=== PATIENT | female | born 1985 | race Caucasian/White ===

== ENCOUNTER 2025-05-03 08:27 | Outpatient (AMB) | payer BC, SELFPAY ==
--- OUTSIDE RECORDS SUMMARY | 2023-11-24 09:00 | XMS_ITS ---
Author Organization [facility] Address [address] [address] Care Team Providers Care Dishwashing Machine Operator Name Role Phone Mari Thompson Primary Care Provider Un available LUTHER BARRERA Unavailable [phone] Allergies No Known Allergies REASON FOR VISIT Rt foot bunion Medications Medication SIG (Take, Route, Frequency, Duration) Notes Start Date End Date Status Multi Vitamin/Minerals - as directed Orally Active PROzac 40 MG 1 capsule Orally Once a day Active [place] Carbonate 300 MG 1 capsule at be dtime Orally Once a day Active Encounters Encounter Location Date Provider Diagnosis [facility] [address] [address] 11/24/2023 LUTEHR BARRERA Plan Of Treatment No Information Progress Notes * Cara OLIVEIRAeDOB: 5 (40 yo F)Acc No.[id number]:11/24/2023 Consult note Patient: Kenisha RAMOS Provider: Keshawn Patel DPM :1985 A ge:38 Y S ex:Female Date:11/24/2023 Phone: Address:[address] [place] [id number] Pcp:Mari Thompson Subjective: * Chief Complaints: * 1 . Rt foot bunion. * Medical History: D iverticulosis, Cervical lymphadenopathy, Pelvic pain, Kidney stones, Bipolar, Allergic rhinitis, Peripheral scotoma of both eyes, Disturbance of smell, Frequent bowel movements. * Surgical History: r ight forearm/wrist surgery 09/2019, colonoscopy- diverticulosis 05/16/2020, robotic hysterectomy- Da Kali hysterectomy with right salpingectomy 07/31/2015, right knee arthroscopy/arthroplasty 1999, right knee arthroscopy/arthroplasty with screws 2001, two on same knee arthroscopy/arthroplasty 2004, laparoscopic left salpingectomy 09/15/2004, procedure extraocular muscle left eye 1989, procedure extraocular muscle left and right eye 1991. * Family History: D aughter(s): alive. F ather: alive. S on(s): alive. M other: alive, skin cancer, breast cancer, mental disorder OCD, suicide/depression. P aternal Grand Father: . P aternal Grand Mother: . M aternal Grand Father: . M aternal Grand Mother: , breast cancer, glaucoma, diabetes. * Social History: T obacco: never smoker Alcohol: yes, rarely. * Medications: T aking [place] Carbonate 300 MG Capsule 1 capsule at bedtime Orally Once a day , Taking Multi Vitamin/Minerals - Tablet as directed Orally , Taking PROzac 40 MG Capsule 1 capsule Orally Once a day * Allergies: N .K.D.A. Objective: * Vitals: Therapeutic Interventions: Assessment: Plan: * Treatment: * Billing Information: * Visit Code: * Procedure Codes: * Electronic signature of CHRISTIANO BARRERA D.P.M. on 05/03/2025 at 08:58 AM EDT Sign off status: Pending * Provider: Keshawn Patel DPM Date: 0 11/24/2023 Generated for Félix vega/Coleen/Ruchi on: 08:58 AM EDT
--- OUTSIDE RECORDS SUMMARY | 2025-05-02 08:00 | XMS_ITS | Encounter Summary ---
Author Organization [facility] Address [address] [place] [address] Care Team Providers Care Assistant Baseball Coach Name Role Phone Beronica Victor MANAGER BAR Primary Care Provider [phone] Reason for Visit * Reason Comments Thyroid Problem F/u thyroid nodules Encounter Details Date Type Department Care Team ([facility] st Contact Info) Description 05/02/2025 8:00 AM EDT Office Visit Endocrinology - [facility] [address] [place] [address] Michelle Tyson MD [address] [place] [address] Subclinical hyperthyroidism (Primary Dx); Pituitary microadenoma (CMS/HCC V24, CMS/HCC V28) Social History Tobacco Use Types Packs/Day Years Used Date Smoking Tobacco: Never Smokeless Tobacco: Never Alcohol Use Standard Drinks/Week Comments Not Currently 0 (1 standard drink = 0.6 oz pur e alcohol) Housing Instability Answer Date Recorde d Are you worried that in the next 2 months you may not have stable housing? No 09/13/2024 Food Access & Nutrition Answer Date Rec orded Do you have access to a vari ety of food including fruits and vegetables? Yes 09/13/2024 Access to Healthcare Answer Date Record ed Within the last 3 months, ho w many times did you visit the emergency department for your medical care? 0 09/13/2024 Health Literacy Answer Date Recorded How often do you need to hav e someone help you when you read instructions, pamphlets, or other written material from your doctor or pharmacy? Never 09/13/2024 Caregiver: How often do you need to have someone help you when you read instructions, pamphlets, or other written material from your doctor or pharmacy? Not on file 09/13/2024 Financial Risk Answer Date Recorded How hard is it for you to pa y for the very basics like food, housing, medical care, and air conditioning / heating? Not very hard 09/13/2024 Transportation Answer Date Recorded Has the lack of transportati on kept you from meetings, work, or from getting things needed for daily living? No Has the lack of transportati on kept you from medical appointments or from getting medications? No 09/13/2024 Social Isolation Answer Date Recorded How often do you feel lonely or isolated from th ose around you? Never 09/13/2024 Food Risk Answer Date Recorded Within the past 12 months we worried whether our food would run out before we got money to buy more. Never true 09/13/2024 Within the past 12 months th e food we bought just didn't last and we didn't have money to get more. Never true 09/13/2024 Dependent Care Answer Date Recorded Do you need help finding or paying for care for your loved ones. For example, child adolescent psychiatrist or elderly care for an older adult? No 09/13/2024 Education Answer Date Recorded Do you think completing more education or training, like finishing a GED, going to college, or learning a trade, would be helpful for you? No 09/13/2024 Employment and Income Answer Date Recor ded During the last four weeks, have you been actively looking for work? No 09/13/2024 Living Situation Answer Date Recorded What is your living situation? Unrecognized valu e 09/13/2024 Comments No Sex and Gender Information Value Date Recorded Sex Assigned at Female 07/25/2024 10:13 AM EST Legal Sex Female 8:09 PM EDT Gender Identity Female 07/25/2024 10:13 AM EST Sexual Orientation Straight 07/25/2024 10 :13 AM EST documented as of this encounter Last Filed Vital Signs Vital Sign Reading Time Taken Comments Blood Pressure 95/55 05/02/2025 7:50 AM EDT Pulse 71 05/02/2025 7:50 AM EDT Temperature - - Respiratory Rate 13 05/02/2025 7:50 AM EDT Oxygen Saturation - - Inhaled Oxygen Concentration - - Weight 71.7 kg (158 lb) 05/02/2025 7:50 AM EDT Height 160 cm (5' 3 ) 05/02/2025 7:50 AM EDT Body Mass Index 27.99 05/02/2025 7:50 AM EDT documented in this encounter Ordered Prescriptions Prescription Sig Dispense Quantity Refills Last Filled Start Date End Date methIMAzole (TAPAZOLE) 5 mg tabletIndications:Sub clinical hyperthyroidism Take 0.5 tablets (2.5 mg total) by mouth 1 (one) time each day. 45 tablet 1 05/02/2025 documented in this encounter Progress Notes * Michelle Tyson MD - 05/02/2025 8:00 AM EDT Please have blood work done. I will reach out with the results. * Michelle Tyson MD - 05/02/2025 8:00 AM EDT Subjective Patient ID: Kenisha Carson is a 40 y.o. female. Chief Complaint Patient presents with Thyroid Problem F/u thyroid nodules HPI 40-year-old female with past medical history of toxic multinodular goiter, pituitary microadenoma, bipolar disorder, MDD presents to the clinic today for follow-up of toxic multinodular goiter and pituitary microadenoma. Patient was last seen in the clinic in November [address] Vaughn. This is my first time evaluating her. Background: Patient reports that she was having symptoms related to her smell (smelling smoke all the time) dueto which a brain MRI was performed which showed pituitary microadenoma. This was in 2020. She was referred to endocrinology for management of the microadenoma. During one of her endocrinology office visits, she was found to have nodules on physical exam due to which thyroid ultrasound wasordered and showed subcentimeter nodules. Patient was also having symptoms of weight loss, anxiety, insomnia, hair loss, and palpitations. Thyroid labs showed TSH mildly low (0.35-0.39) with normal free T4 levels. TSI and TRAb antibodies negative. However, given patient's symptoms, she was started on low-dose methimazole 2.5 mg daily. During today's visit, patient denies galactorrhea. No change in ring size or shoe size. She does not have menstrual cycles as she had a hysterectomy. She does not have any visual symptoms. She has a history of migraines and reports that they have been more frequent compared to prior. She is seeing her neurologist tomorrow. Reports orthostasis, on propranolol. Last MRI brain was in September 2024 and showed stable pituitary microadenoma measuring 2 mm. Regarding her thyroid nodules, she is currently on methimazole 2.5 mg daily. She reports that she has been gaining back the weight that she previously lost. No compressive symptoms. She denies diarrhea, heat intolerance, anxiety, insomnia, palpitations. Biotin use: yes Amiodarone use: no Fielding use: yes, 450mg daily Started on methimazole 1 year ago 2.5mg daily Hx of head or neck radiation: no Smoking Hx: no FH of thyroid cancer: no TSH: 0.76 Thyroid US: FINDINGS: ACR TI-RADS criteria was utilized for nodule description and follow-up recommendations. RIGHT THYROID: Right thyroid lobe demonstrates homogeneous echotexture measuring 4.8 x 1.3 x 2.0 cm. No thyroid nodules greater than 0.5 cm identified. LEFT THYROID: Left thyroid lobe demonstrates homogeneous echotexture measuring 4.4 x 1.2 x 1.9 cm. No thyroid nodules greater than 0.5 cm identified. ISTHMUS: The isthmus measures 0.3 cm. No thyroid nodules greater than 0.5 cm identified. VASCULARITY: Color doppler demonstrates normal blood flow to thyroid gland. IMPRESSION: No thyroid nodules greater than 0.5 cm. The following portions of the patient's chart were reviewed in this encounter and updated as appropriate: Allergies Meds Review of Systems 12 point review of systems was performed and is negative except for as stated above. Objective Physical Exam GENERAL: Alert and oriented, in no acute distress. Well-nourished and well-hydrated. HEAD/NECK: Normocephalic and atraumatic. EYES: Pupils equal, round, and reactive to light (PERRLA). Extraocular movements intact. Conjunctivae clear. LUNGS: Lungs clear to auscultation bilaterally. No wheezes, rales, or rhonchi. CARDIOVASCULAR: Regular rate and rhythm. Normal S1 and S2 sounds. No murmurs or gallops. ABDOMEN: Soft, non-tender, and non-distended. Bowel sounds are active and normal. EXTREMITIES: No edema or deformities. Full range of motion in all joints. NEUROLOGICAL: Alert and oriented. Grossly nonfocal SKIN: Skin is warm, dry, and intact. Assessment/Plan Subclinical hyperthyroidism (Primary) Pituitary microadenoma (CMS/HCC V24, CMS/HCC V28) Regarding patient subclinical hyperthyroidism, will continue methimazole 2.5 mg daily. Her last labs in December 2024 showed normal TFTs. She has been taking biotin daily. I advised her to stop biotin for 48 hours and have repeat TFTs drawn. Will refill methimazole 2.5 mg daily. The last time she had a thyroid ultrasound was in December 2024, we will plan to repeat another ultrasound in December 2025. Regarding patient's pituitary microadenoma, she has no neurologic symptoms at this time. The size of the adenoma has remained stable at 2 mm. I will obtain a prolactin level and IGF-I level. Her last MRI brain was in September 2024 and it was stable compared to April 2024. Will plan to repeat another MRI in September 2025. Patient does report orthostasis but I am not concerned about cortisol deficiency at this time. Her blood pressure in the office today is on the lower side and she is taking propranolol 10 mg twice daily for anxiety. I advised her to reach out to her psychiatrist to see if the dose of this can be reduced and if that helps with her symptoms. Follow-up in 6 months Michelle Tyson MD Endocrinology, Diabetes, and Metabolism documented in this encounter Plan of Treatment Upcoming Encounters Date Type Department Care Team (Late st Contact Info) Description 10/09/2025 7:00 AM EDT Office Visit [facility] [address] [place] [phone] Liliane Pillai NP [address] [place] [address] 10/17/2025 8:30 AM EDT Appointment [facility] [address] [place] [id number] 10/31/2025 8:40 AM EDT Office Visit Endocrinology [facility] [address] [place] [address] Michelle Tyson MD [address], [place] Scheduled Orders Name Type Priority Associated Diagnoses Orde r Schedule Prolactin Lab Routine Pituitary microadenoma ([facility] V24, [facility] V28) 1 Occurrences starting 05/02/2025 until 05/02/2026 Insulin-like growth factor Lab Routine Pituitary microadenoma ([facility] V24, [facility] V28) 1 Occurrences starting 05/02/2025 until 05/02/2026 Thyroid stimulating hormone Lab Routine Subclinical hyperthyroidism 1 Occurrences starting 05/02/2025 until 05/02/2026 Thyroxine free Lab Routine Subclinical hyperthyroidism 1 Occurrences starting 05/02/2025 until 05/02/2026 Triiodothyronine free Lab Routine Subclinical hyperthyroidism 1 Occurrences starting 05/02/2025 until 05/02/2026 documented as of this encounter Visit Diagnoses Diagnosis Subclinical hyperthyroidism- Primary Thyrotoxicosis without mention of goiter or other cause, without mention of thyrotoxic crisis or storm Pituitary microadenoma ([facility] V24, [facility] V28) Benign neoplasm of pituitary gland and craniopharyngeal duct (pouch) documented in this encounter Discontinued Medications Medication Sig Discontinue Reason Start Date End Da te methIMAzole (TAPAZOLE) 5 mg tabletIndications:Subclini dede hyperthyroidism Take 0.5 tablets (2.5 mg total) by mouth 1 (one) time each day. Reorder 11/25/2024 05/02/2025 documented as of this encounter Additional Health Concerns Assessment Noted Time PHQ-9 Depression Total Score: 3 03/30/20 25 9:25 AM EDT documented as of this encounter Care Teams Assistant Baseball Coach Relationship Specialty Start Date End Date Beronica Victor NP [address] [facility] [address] [place] [address] PCP - General Family Medicine 07/25/24 documented as of this encounter
--- NOTE | 2025-05-03 08:30 | A.OFFVIS_ITS ---
Intake Visit Reasons: 6m Allergies No Known Allergies Allergy (Verified 05/03/25 08:30) Medication List - Last Reconciled 05/03/25 by Glendy Deal CNP buspirone mg PO estradiol 1 patch topical 2XW lithium carbonate mg PO lumateperone (Caplyta) 42 mg PO DAILY methimazole 2.5 mg PO DAILY progesterone micronized 100 mg PO BEDTIME propranolol 10 mg PO Q12H PRN topiramate 75 mg PO DAILY trazodone 0 - 100 mg PO DAILY HPI Comments Details: 40-year-old woman with bipolar disorder, a hormone negative pituitary lesion noted on MRI done in 2021, and multiple types of migraine (without aura, with aura, and migraine equivalent syndrome). Headaches were happening all the time. Pain was usually to the back of the head, dull or burning or throbbing-type pain with some occasional nausea. No auras. No specific triggers identified. Sleep was okay. She was taking topiramate 25mg in the morning and 50mg at bedtime. [facility] Medical History (Updated 05/03/25 @ 08:40 by Glendy Deal CNP) Depression Bipolar disorder Review of Systems Const Denies chills, Denies daytime sleepiness, Denies difficulty sleeping, Denies fatigue, Denies fever(s), Denies frequent falls, Reports headache(s), Denies increased appetite, Denies poor appetite, Denies snoring, Denies weakness, Denies weight gain and Denies weight loss Eyes Denies loss of vision ENT Denies vertigo, Denies dizziness and Reports headache(s) Card Denies chest pain at rest, Denies chest pain with activity, Denies syncope, Denies leg edema and Denies palpitations Resp Denies snoring GI Denies constipation, Denies heartburn, Denies diarrhea and Denies nausea Denies urinary frequency, Denies urinary incontinence and Denies urinary urgency Musc Denies abnormal gait, Denies numbness and Denies tingling Skin/Breast Denies dry skin and Denies rash Neuro Denies abnormal gait, Denies vertigo, Denies dizziness, Denies syncope, Denies frequent falls, Reports headache(s), Denies lack of coordination, Denies loss of vision, Denies memory loss, Denies numbness, Denies restless legs, Denies seizure-like activity, Denies tingling, Denies paresthesias, Denies tremor(s) and Denies weakness Psych Denies anxiety, Denies depression, Denies auditory hallucinations, Denies memory loss, Denies visual hallucinations and Denies suicidal ideation Endo Denies fatigue and Denies palpitations Physical Exam Const Other: General Appearance:? normal, in no acute distress. Skin:? no rashes, no significant birthmarks. Heart:? S1, S2 normal, no murmurs. Lungs:? clear anteriorly and posteriorly. Extremities:? no edema. Psych:? alert, oriented, cognitive function intact, cooperative with exam. Neuro Other: Mental Status:?Normal attention, orientation, memory and affect.? Cranial Nerves:?Pupils are equal, round and reactive to light. External occular muscles are intact. Visual rey are full. Face is symmetrical. Facial sensations are normal. Tongue is midline. Palate elevates symmetrically. Shoulder shrugging is normal. Hearing to bedside conversation is normal. Sensory Exam:?....? Coordination:?No ataxia,?no titubation.? Gait Exam: Within normal limits. Extrapyramidal System:?No tremor, rigidity with normal facial expressions.? Pronator Drift:?Not present.? Involuntary Movements:?No tremors seen.? Speech:?Normal.? Results Reviewed Results Reviewed: Labs at [facility] in Oct 2023: FSH 6.3, LH 5.2, estradiol 66.6, prolactin 13, Insulin like growth factor 1: 248, TSH 0.54, T4 1.05, Cortisol 7.5: All normal. MRI brain [facility] at [facility] in Apr 2024: Small Rathke's cyst MRI brain [facility] at [facility] in Oct 2023: 3.2mm x 4.6mm x 2.8mm pituitary lesion MRI brain at [facility] in Oct 2021: 2mm lesion in pitutary w/o enhancement Assessment & Plan Assessment & Plan (1) Migraine with aura: Code(s): G43.109 - Migraine with aura, not intractable, without status migrainosus Category: Medical Qualifiers: Status migrainosus presence: without status migrainosus Intractability: not intractable Qualified Code(s): G43.109 - Migraine with aura, not intractable, without status migrainosus Plan: Increase topiramate 25mg 2 tablets twice a day. (2) Migraine without aura: Code(s): G43.009 - Migraine without aura, not intractable, without status migrainosus Category: Medical Qualifiers: Status migrainosus presence: without status migrainosus Intractability: not intractable Qualified Code(s): G43.009 - Migraine without aura, not intractable, without status migrainosus (3) Migraine equivalent: Code(s): G43.109 - Migraine with aura, not intractable, without status migrainosus Category: Medical (4) Pituitary adenoma: Code(s): D35.2 - Benign neoplasm of pituitary gland Category: Medical Plan: MRI brain with and without contrast ordered f/u pituitary lesion Plan . Orders: Orders MR head/brain wo/w con Today D35.2 - Benign neoplasm of pituitary gland Medications: New topiramate 50 mg (2 x 25 mg) PO BID 360 tabs 1RF 90 days Coding Level of Care Code Est Pt Level 4 (73971) Diagnoses Migraine with aura and without status migrainosus, not intractable G43.109 Status migrainosus presence: without status migrainosus Intractability: not intractable Migraine without aura and without status migrainosus, not intractable G43.009 Status migrainosus presence: without status migrainosus Intractability: not intractable Migraine equivalent G43.109 Pituitary adenoma D35.2
--- OUTSIDE RECORDS SUMMARY | 2025-05-03 08:59 | XMS_ITS ---
Author Name [facility] Organization Unknown Results Test Name/Text Value Interpretation Date Range Source Bilirub SerPl-mCnc 1.2 mg/dL Above high normal 09/23/2024 0. 3 - 1 [facility] Bilirub Direct SerPl-mCnc 0.2 mg/dL Normal 09/23/2024 0 - 0.2 [facility] Bilirub Indirect SerPl-mCnc 1.0 mg/dL Normal 09/23/2024 [facility] Est. average glucose Bld gHb Est-mCnc 105.0 mg/dL Normal 09/09/2024 [facility] HbA1c MFr Bld 5.3 % Normal 09/09/2024 - 5.7 [facility] BUN SerPl-mCnc 11.0 mg/dL Normal 09/09/2024 7 - 17 [facility] Creat SerPl-mCnc 0.8 mg/dL Normal 09/09/2024 0.5 - 1 CT _[facility] eGFRcr SerPlBld CKD-EPI 2020 96.0 mL/min/1.73m2 Normal 09/09/2024 - [facility] Sodium SerPl-sCnc 141.0 mmol/L Normal 09/09/2024 135 - 14 5 [facility] Anion Gap SerPl-sCnc 8.0 Normal 09/09/2024 5 - 14 [facility] Prot SerPl-mCnc 6.7 g/dL Normal 09/09/2024 6.4 - 8.5 [facility]_ [facility] Potassium SerPl-sCnc 4.0 mmol/L Normal 09/09/2024 3.5 - 5 .1 [facility] Calcium SerPl-mCnc 9.6 mg/dL Normal 09/09/2024 8.4 - 10.2 [facility] Chloride SerPl-sCnc 108.0 mmol/L Above high normal 98 - 107 [facility] Albumin SerPl-mCnc 4.8 g/dL Normal 09/09/2024 3.5 - 5 [facility] AST SerPl-cCnc 17.0 unit/L Normal 09/09/2024 5 - 40 CT [facility] Glucose SerPl-mCnc 96.0 mg/dL Normal 09/09/2024 70 - 99 [facility] Bilirub SerPl-mCnc 1.7 mg/dL Above high normal 09/09/2024 0. 3 - 1 [facility] ALT SerPl-cCnc 16.0 unit/L Normal 09/09/2024 7 - 52 [facility] ALP SerPl-cCnc 51.0 unit/L Normal 09/09/2024 34 - 104 [facility] CO2 SerPl-sCnc 25.0 mmol/L Normal 09/09/2024 24 - 32 [facility] BUN/Creat SerPl 13.8 Normal 09/09/2024 12 - 20 [facility] LDLc SerPl Calc-mCnc 123.0 mg/dL Normal 09/09/2024 50 - 1 30 [facility] VLDLc SerPl Calc-mCnc 18.8 mg/dL Normal 09/09/2024 [facility] Cholest SerPl-mCnc 184.0 mg/dL Normal 09/09/2024 0 - 200 [facility] HDLc SerPl-mCnc 42.0 mg/dL Normal 09/09/2024 35 - 80 [facility] Trigl SerPl-mCnc 94.0 mg/dL Normal 09/09/2024 - 150 C [facility] WBC # Bld Auto 5.5 K/mcL Normal 09/09/2024 4 - 10.5 [facility] RDW RBC Auto-Rto 11.9 % Below low normal 09/09/2024 12.1 - 16.2 [facility] PMV Bld Auto 8.8 FL Normal 09/09/2024 7.4 - 11.4 [facility] MCH RBC Qn Auto 31.0 pcg Normal 09/09/2024 25 - 33 [facility] Monocytes/leuk NFr Bld Auto 6.7 % Normal 09/09/2024 2 - 12 [facility] RBC # Bld Auto 4.52 M/mcL Normal 09/09/2024 4.2 - 5.4 [facility]_ [facility] Platelet # Bld Auto 281.0 K/mcL Normal 09/09/2024 150 - 4 50 [facility] Eosinophil # Bld Auto 0.1 K/mcL Normal 09/09/2024 0 - 0.5 [facility] Lymphocytes # Bld Auto 1.8 K/mcL Normal 09/09/2024 1 - 3.2 [facility] Neutrophils # Bld Auto 3.2 K/mcL Normal 09/09/2024 1.8 - 7.8 [facility] Hgb Bld-mCnc 14.0 g/dL Normal 09/09/2024 12.5 - 16 [facility] Basophils/leuk NFr Bld Auto 0.7 % Normal 09/09/2024 0 - 2 [facility] Basophils # Bld Auto 0.0 K/mcL Normal 09/09/2024 0 - 0.2 [facility] Lymphocytes/leuk NFr Bld Auto 32.9 % Normal 09/09/2024 20 - 48 [facility] Monocytes # Bld Auto 0.4 K/mcL Normal 09/09/2024 0 - 0.8 [facility] Neutrophils/leuk NFr Bld Auto 58.6 % Normal 09/09/2024 44 - 74 [facility] MCHC RBC Auto-mCnc 34.5 g/dL Normal 09/09/2024 32 - 36 [facility] Eosinophil/leuk NFr Bld Auto 1.1 % Normal 09/09/2024 0 - 6 [facility] Hct VFr Bld Auto 40.6 % Normal 09/09/2024 37 - 47 CT [facility] MCV RBC Auto 89.7 FL Normal 09/09/2024 78 - 100 [facility] History of Medication Use Medication Directions Dispensed Refills Start Date End Date Status estradioL (VIVELLE-DOT) 0.05 mg/[address] 1 patch on the skin 2 (two) times a week. 04/06/20 25 active estradioL (VIVELLE-DOT) 0.05 mg/[address] 1 patch on the skin 2 (two) times a week. 04/06/20 25 active methIMAzole (TAPAZOLE) 5 mg tablet Take 0.5 tablets (2.5 mg total) by mouth 1 (one) time each day. 11/26/19 25 active methIMAzole (TAPAZOLE) 5 mg tablet Take 0.5 tablets (2.5 mg total) by mouth 1 (one) time each day. 11/26/19 25 active Vraylar 1.5 mg capsule Take 1 capsule (1.5 mg total) by mouth 1 (one) time each day. 11/16/19 25 active Latuda 40 mg tablet Take 1 tablet (40 mg total) by mouth 1 (one) time each day with breakfast. 10/05/19 25 active estradioL (ESTRACE) 1 mg tablet Take 1 tablet (1 mg total) by mouth 1 (one) time each day. 09/20/19 25 active estradioL (ESTRACE) 1 mg tablet Take 1 tablet (1 mg total) by mouth 1 (one) time each day. 09/20/19 25 active penicillin V potassiumTake 1 Tablet (oral) 2 times per day for 10 [id number] times per [id number] mg 07/28/19 active cyclobenzaprineTake 1 tablet (Oral) 3 times per day for 7 days May Cause [id number] et3 times per [id number] 0mg 10/28/19 23 suspended prednisoneTake 1 Tablet (oral) 1 time per day for 5 [id number] time per [id number] 0mg 10/28/19 23 suspended Bactrim DSTake 1 Tablet (oral) 2 times per day for 10 [id number] times per aodezok22mhxjajuukpztl 800-160mg 09/17/19 23 suspended lamoTRIgine (LaMICtal) 25 MG tablet 05/28/20 active QUEtiapine (SEROquel XR) 50 MG Tablet SR 24 hr Take 50 mg by mouth daily. 05/06/20 active FLUoxetine (PROzac) 40 MG capsule Take 40 mg by mouth daily. 04/23/20 22 active adapalene 0.3 % topical gel APPLY TO FACE AT NIGHT DAILY 023 active Prozac 023 active sulfamethoxazole 800 mg-trimethoprim 160 mg tablet TAKE 1 TABLET BY MOUTH TWICE A DAY FOR 10 DAYS 023 completed amoxicillin 875 mg tablet TAKE 1 TABLET BY MOUTH EVERY 12 HOURS TAKE PROBIOTIC WHILE TAKING 023 completed cyclobenzaprine 10 mg tablet TAKE 1 TABLET BY MOUTH 3 TIMES PER DAY FOR 7 DAYS MAY CAUSE DROWSINESS 023 completed fluoxetine 40 mg capsule TAKE 1 CAPSULE BY MOUTH ONCE A DAY 023 completed fluoxetine 60 mg tablet TAKE 1 TABLET BY MOUTH EVERY DAY FOR ANXIETY 023 active lithium carbonate 300 mg capsule TAKE 1 CAPSULE IN THE MORNING AND 2 CAPSULES IN THE EVENING 023 completed nitrofurantoin monohydrate/macrocry stals 100 mg capsule TAKE 1 CAPSULE BY MOUTH TWICE DAILY FOR 5 DAYS 023 completed prednisone 50 mg tablet TAKE 1 TABLET BY MOUTH EVERY DAY FOR 5 DAYS 023 completed quetiapine ER 50 mg tablet,extended release 24 hr TAKE 1 TABLET(S) BY MOUTH NIGHTLY FOR MOOD 023 completed terconazole 0.4 % vaginal cream APPLY DIRECTED VAGINALLY EVERY DAY AT BEDTIME FOR 7 DAYS 023 completed SeroquelTakeNo date recordedNo form recordedNo frequency recordedNo route recordedNo set duration recordedNo set duration amount recordedactiveNo dosage strength recordedNo dosage strength units of measure recorded active ProzacTakeNo date recordedNo form recordedNo frequency recordedNo route recordedNo set duration recordedNo set duration amount recordedactiveNo dosage strength recordedNo dosage strength units of measure recorded active LamictalTakeNo date recordedNo form recordedNo frequency recordedNo route recordedNo set duration recordedNo set duration amount recordedactiveNo dosage strength recordedNo dosage strength units of measure recorded active ciprofloxacin 500 mg tablet TAKE 1 TABLET BY MOUTH TWICE A DAY active lamotrigine 25 mg tablet TAKE 1 TABLET(S) BY MOUTH ONCE A DAY FOR MOOD STABILIZATION active Seroquel XR 50 mg tablet,extended release active busPIRone (BUSPAR) 10 mg tablet Take 1 tablet (10 mg total) by mouth 1 (one) time each day. active busPIRone (BUSPAR) 10 mg tablet Take 1 tablet (10 mg total) by mouth 1 (one) time each day. active Caplyta 42 mg capsule active Caplyta 42 mg capsule active lithium 150 mg capsule active lithium 150 mg capsule active multivit with min-folic acid 200 mcg tablet,chewable Chew. activ e multivit with min-folic acid 200 mcg tablet,chewable Chew. activ e propranoloL (INDERAL) 10 mg tablet Take 1 tablet (10 mg total) by mouth. active propranoloL (INDERAL) 10 mg tablet Take 1 tablet (10 mg total) by mouth. active topiramate (TOPAMAX) 25 mg tablet Take 1 tablet (25 mg total) by mouth 1 (one) time each day. 1 tab po in am, 2 tabs po pm active topiramate (TOPAMAX) 25 mg tablet Take 1 tablet (25 mg total) by mouth 1 (one) time each day. 1 tab po in am, 2 tabs po pm active Allergies Allergen Reaction Severity Comment Documented Date Source Statu s LAMOTRIGINE Other reaction( s): hives,swelling 12/09/2021 [facility] active Problems Problem Status Onset Date Problem Type Date of Resolution Source Calcification of left breast active EncounterDiagnosisAct [facility] Cervical cancer screening active 2024-09-19 ProblemAct [facility] Cervical lymphadenopathy active 2018-02-25 ProblemAct [facility] Diverticulosis active 2024-06-16 Problem[address] [facility] Kidney stones active 2013-04-12 [address] [facility] Screening mammogram for breast cancer active 2024-09-19 ProblemAct [facility] Bipolar affective (CMS/HCC V24, CMS/HCC V28) active 2011-07-29 ProblemAct [facility] Cervical high risk HPV (human papillomavirus) test positive active 2024-09-19 ProblemAct [facility] Surgical menopause active 2024-09-19 ProblemAct [facility] Allergic rhinitis active 2011-07-09 ProblemAct [facility] Pelvic pain in female active 2014-07-17 ProblemAct [facility] Night sweats active 2024-09-19 [address] [facility] Encounter for gynecological examination with abnormal finding active 2024-09-19 ProblemAct [facility] Major depressive disorder, recurrent, unspecified (CMS/HCC V24) active 2019-07-22 [address] [facility] Streptococcal pharyngitis active 2023-07-28 ProblemAct [facility] Bipolar disorder, unspecified active ProblemAct [facility] Anxiety disorder, unspecified active ProblemAct [facility] Pain in right foot active 2022-12-30 ProblemAct [facility] Closed fracture of sesamoid bone of foot active 2023-01-15 ProblemAct [facility] Right anterior shoulder pain active EncounterDiagnosisAct [facility] Immunizations Vaccine Date Source Lot Number Status Influenza trivalent, MDCK, 0 .5mL, preservative free (Flucelvax) 6mo and older 03/14/2024 [facility] [id number] completed Influenza trivalent, MDCK, 0 .5mL, preservative free (Flucelvax) 6mo and older 03/14/2024 [facility] 9465 84 completed Moderna SARS-CoV-2 COVID-19, mRNA, LNP-S, preservative free 11/08/2020 [facility] completed Moderna SARS-CoV-2 COVID-19, mRNA, LNP-S, preservative free 11/08/2020 [facility] completed Influenza trivalent, 0.5mL, preservative free (Fluarix; FluLaval; Fluzone) ages 6mo and older (Afluria) 3 years and older 03/11/2018 [facility] completed Influenza trivalent, 0.5mL, preservative free (Fluarix; FluLaval; Fluzone) ages 6mo and older (Afluria) 3 years and older 03/11/2018 [facility] completed H1N1 Inj Preservative Free 03/04/2017 [facility] completed H1N1 Inj Preservative Free 03/04/2017 [facility] completed Tdap Tetanus diptheria acell ular pertussis (Boostrix; Adacel) 7yo and older 07/29/2011 [facility] [id number] completed Tdap Tetanus diptheria acell ular pertussis (Boostrix; Adacel) 7yo and older 07/29/2011 [facility] [id number] completed Tdap Tetanus diptheria acell ular pertussis (Boostrix; Adacel) 7yo and older 09/13/2010 [facility] [id number] completed Tdap Tetanus diptheria acell ular pertussis (Boostrix; Adacel) 7yo and older 09/13/2010 [facility] [id number] completed Encounters Encounter Type Encounter Reason Primary Diagnosis Location Date Ambulatory Mammographic calcification found on diagnostic imaging of breast Mammographic calcification found on diagnostic imaging of breast [facility] 04/18/2025 Ambulatory Follow-up Asymptomatic postprocedural ovarian failure [facility] 04/06/2025 Ambulatory Lab Results Lab Results [facility] 12/28/2024 Ambulatory Family history of malignant neoplasm of breast Family history of malignant neoplasm of breast [facility] 11/29/2024 Ambulatory Other abnormal and inconclusive findings on diagnostic imaging of breast Other abnormal and inconclusive findings on diagnostic imaging of breast [facility] 10/11/2024 Ambulatory Other abnormal and inconclusive findings on diagnostic imaging of breast Other abnormal and inconclusive findings on diagnostic imaging of breast [facility] 10/11/2024 Ambulatory Encounter for screening mammogram for malignant neoplasm of breast Encounter for screening mammogram for malignant neoplasm of breast [facility] 09/29/2024 Ambulatory Lab Results Unspecified jaundice [facility] 09/23/2024 Ambulatory Gynecologic Exam Encounter for gynecological examination (general) (routine) with abnormal findings [facility] 09/19/2024 Ambulatory Pain in left elbow Pain in left elbow [facility] 09/09/2024 Ambulatory New Patient Bipolar disorder , current episode manic without psychotic features, unspecified [facility]09[facility]20[facility] 02/19/2023 Ambulatory [facility] 02/18/2023 Ambulatory Pain in right shoulder [facility] 02/09/2023 Ambulatory [facility] 01/22/2023 Ambulatory [facility] 01/22/2023 Ambulatory [facility] 01/15/2023 Ambulatory [facility] 01/15/2023 Ambulatory [facility] 01/14/2023 Ambulatory [facility] 12/30/2022 Ambulatory [facility] 12/30/2022 Ambulatory [facility] 12/30/2022 Ambulatory [facility] 12/30/2022 Ambulatory [facility] 12/30/2022 Ambulatory Contact with and (suspected) exposure to covid-19 cVidya 06/03/2022 Care Team Organization Name Specialty Phone Email Start Date End Da te [facility] Primary Care 04/18/2025 [facility] Primary Care 04/06/2025 [facility] 02/22/2025 [facility] Primary Care 5 [facility] Primary Care 09/14/2024 [facility] Primary Care 5 [facility] Primary Care 09/09/2024 [facility] Primary Care 07/26/2023 [facility] 02/09/2023 01/18/2025 [facility] 02/09/2023 02/09/2023 cVidya 06/03/2022 c[facility]idya 04/06/2022 06/03/2022
--- OUTSIDE RECORDS SUMMARY | 2025-05-03 08:59 | XMS_ITS | Clinical Summary ---
Author Organization [facility] Address [address] [place] [address] Care Team Providers Care Strike Plate Attacher Name Role Phone Alexandria-Mari Victor MD Primary Care Provider Allergies No known active allergies Medications Medication Sig Dispensed Refills Start Date End Date Status lithium carbonate 300 MG capsule TAKE 1 CAPSULE BY MOUTH EVERY MORNING AND TAKE 2 CAPSULES EVERY EVENING 0 01/09/2020 Active FLUoxetine (PROzac) 40 MG capsule Take 40 mg by mouth daily. 0 01/05/2020 Active metroNIDAZOLE (FLAGYL) 250 MG tablet Take 1 tablet (250 mg total) by mouth 3 (three) times a day. 21 tablet 0 03/21/2020 Active Social History Tobacco Use Types Packs/Day Years Used Date Smoking Tobacco: Never Smokeless Tobacco: Never Alcohol Use Standard Drinks/Week Comments No 0 (1 standard drink = 0.6 oz pur e alcohol) Sex and Gender Information Value Date Recorded Sex Assigned at Female 03/21/2020 4:29 PM EDT Gender Identity Not on file Sexual Orientation Not on file Job Start Date Occupation Industry Not on file Not on file Not on file Last Filed Vital Signs Vital Sign Reading Time Taken Comments Blood Pressure 126/72 03/21/2020 5:22 PM EDT Pulse 84 03/21/2020 5:22 PM EDT Temperature 36.4 C (97.5 F) 03/21/2020 5:22 PM EDT Respiratory Rate 16 03/21/2020 5:22 PM EDT Oxygen Saturation 100% 03/21/2020 5:22 PM EDT Inhaled Oxygen Concentration - - Weight 86.2 kg (190 lb) 03/21/2020 3:42 PM EDT Height 160 cm (5' 3 ) 03/21/2020 3:42 PM EDT Body Mass Index 33.66 03/21/2020 3:42 PM EDT Plan of Treatment Health Maintenance Due Date Last Done Comments Hepatitis B Vaccines (1 of 3 - 3-dose series) 1985 Hepatitis C Screening 1985 Depression Screening 1997 BMI Counseling 2003 Preventative Health Evaluation 2003 Cervical Cancer Screening (Pap Smear) 2006 DTap / Tdap / Td (3 - Td or Tdap) 07/29/2021 07/29/2011, 09/13/2010 COVID-19 Vaccine (2024-2 6 season) 2025 10/11/2020 Influenza Vaccine (#1) 2025 8, 03/20/2015 Pneumococcal Vaccine Aged Out No long er eligible based on patient's age to complete this topic RSV Ped < 20 months Aged Out No longe r eligible based on patient's age to complete this topic Care Teams Strike Plate Attacher Relationship Specialty Start Date End Date Alexandria-Mari Victor MD PCP - General Internal Medicine 03/21/20
--- OUTSIDE RECORDS SUMMARY | 2025-05-03 08:59 | XMS_ITS | Patient Health Record ---
Author Organization [facility] Address [address] [facility] [address] [place] [address] Care Team Providers Care Content Assistant Name Role Phone Mancelona-Mari Victor Primary Care Provider Un available LUTHER BARRERA Unavailable [phone] Allergies No Known Allergies Reason For Referral No Information Medications Medication SIG (Take, Route, Frequency, Duration) Notes Start Date End Date Status PROzac 40 MG 1 capsule Orally Onc e a day Not-Taking Multi Vitamin/Minerals - as directed Orally Active [place] Carbonate 300 MG 1 capsule at be dtime Orally Once a day Not-Taking busPIRone HCl 15 MG 1 tablet Orally Twic e a day Active Topamax Active Plan Of Treatment Pending Test Test Name Order Date X ray : Foot, right 3v 12/07/2023 Insurance Providers Payer Name Payer Address Payer Phone Subscriber Number Group Number Insured Name Patient Relationship to Insured Coverage Start Date Coverage End Date [employer] [address] [place] [address] [id number] Kenisha Carson Self - patient is the insured Medical (General) History Medical History History ICD Code diverticulosis cervical lymphadenopathy pelvic pain kidney stones bipolar allergic rhinitis peripheral scotoma of both eyes disturbance of smell frequent bowel movements + COVID 2020 COVID vaccinated X 2 (Moderna) Pituitary microadenoma Multiple thyroid nodules Surgical History Surgery Date(Month/Year) right forearm/wrist surgery 09/2019 colonoscopy- diverticulosis 05/16/2020 robotic hysterectomy- [facility] hysterect rishabh with right salpingectomy 07/31/2015 right knee arthroscopy/arthroplasty 1999 right knee arthroscopy/arthroplasty with screws 2001 two on same knee arthroscopy/arthroplast y 2004 laparoscopic left salpingectomy 09/16/19 05 procedure extraocular muscle left eye 19 90 procedure extraocular muscle left and ri ght eye 1992 appendectomy 2013 2007 2009 2010 Hospitalization History Reason Date(Month/Year) hysterectomy appendectomy 2013 2010 2009 2007 1 knee surgery
--- OUTSIDE RECORDS SUMMARY | 2025-05-03 08:59 | XMS_ITS | Clinical Summary ---
Author Organization [facility] Address [address] [place] [address] Care Team Providers Care Oil Exploration Engineer Name Role Phone Unknown Primary Care Provider [phone] Allergies No known active allergies Medications FLUoxetine (PROzac) 40 MG capsule Take 40 mg by mouth daily. 04/23/2022 Active lamoTRIgine (LaMICtal) 25 MG tablet 05/28/2022 Active QUEtiapine (SEROquel XR) 50 MG Tablet SR 24 hr Take 50 mg by mouth daily. 05/06/2022 Active Social History Tobacco Use Types Packs/Day Years Used Date Smoking Tobacco: Never Assessed Comments Unknown Sex and Gender Information Value Date Recorded Sex Assigned at Not on file Legal Sex Female 6:38 PM EST Gender Identity Not on file Sexual Orientation Not on file Last Filed Vital Signs Vital Sign Reading Time Taken Comments Blood Pressure 128/86 02/09/2023 6:02 PM EDT Pulse 64 02/09/2023 6:02 PM EDT Temperature 36.7 C (98.1 F) 02/09/2023 6:02 PM EDT Respiratory Rate - - Oxygen Saturation 100% 02/09/2023 6:02 PM EDT Inhaled Oxygen Concentration - - Weight 78.9 kg (174 lb) 02/09/2023 6:02 PM EDT Height - - Body Mass Index - - Plan of Treatment Health Maintenance Due Date Last Done Comments Hepatitis C Virus Screening 1985 HIV Screening 1998 DTaP/Tdap/Td Vaccines (1 - Tdap) 2004 Hepatitis B Vaccines (1 of 3 - 19+ 3-dose series) 2004 Influenza Vaccine 02/03/2025 03/11/2018, 03/20/2015 COVID-19 Vaccine (4 - 2024-2 6 season) 2025 06/11/2021, 11/08/2020, 10/11/2020 Mammogram 2025 Pap Smear (Ages 21-65) 09/20/2027 09/19/2024 HPV Vaccines (No Doses Required) Completed Pneumococcal Vaccine: Pediatric (0-5 Years) and At-Risk Patients (6 to 49 Years) Aged Out No longer eligible b ased on patient's age to complete this topic Procedures Procedure Name Priority Date/Time Associated Diagnosis Comments THINPREP PAP(CAP AND HAT PRODUCTION SUPERVISOR) HPV SCR RFX HPV 16,18/45 Routine 09/19/2024 10:28 AM EDT from Last 3 Months or Most Recently Relevant to Health Maintenance Results * ThinPrep Pap(Hazmat Technician) HPV Scr Rfx HPV 16,18/45 (09/19/2024 10:28 AM EDT) Clinical Information [employer] Comment:SURGICAL ANA MARIA/POS HP V LMP: [employer] Comment:2014 Previous PAP: [employer] Comment:05-29-15 NEG Previous Biopsy [facility] Comment:NONE Source: [employer] Comment:Vagina Statement of Adequacy: [employer] Comment:SATISFACTORY FOR REBECCA LUATION Interpretation/Res ult: [employer] Comment: Cytology Results: Negative for intraepithelial lesion or malignancy. Comment: [employer] Comment: This Pap test has been evaluated with computer assisted technology. User Experience Developer: [employer] Comment: MPG, CT(ASCP) CT screening location: [place] [address] Review User Experience Developer: [employer] Comment: [facility], CT(ASCP) CT screening location: [place] [address] Comment [employer] Comment: EXPLANATORY NOTE: The Pap is a screening test for cervical cancer. It is not a diagnostic test and is subject to false negative and false positive results. It is most reliable when a satisfactory sample, regularly obtained, is submitted with relevant clinical findings and history, and when the Pap result is evaluated along with historic and current clinical information. Hpv Mrna [id number] Not Detected Not Detected [facility] Comment: Methodology: Donkey Doctor-Mediated Amplification This assay detects E6/E7 viral messenger RNA (mRNA) from 14 high-risk HPV types (16,18,31,33,35,39,45,51,52,56,58,59,66,68). Cervical sources are required for HPV testing. If a vaginal source from a patient who has had a total hysterectomy with removal of cervix was submitted, please contact the testing laboratory for alternative testing options. For additional information, please refer to http://education.WibiData/faq/QKV870v1 (This link if provided for information/ educational purposes only.) 09/19/2024 10:2 8 AM EDT 09/20/2024 6:03 AM EDT [facility] - 09/21/2024 3:42 PM EDT Ordered by External Provider. [id number], SHANI EPPS, External Provider LAB AMB PATH/CYTO ORDERABLE S Final Result [employer] [address] [place] [phone] from Last 3 Months or Most Recently Relevant to Health Maintenance Insurance [facility] Care Teams Oil Exploration Engineer Relationship Specialty Start Date End Date Unknown Unknow Provider Address PCP - General 06/03/22
--- OUTSIDE RECORDS SUMMARY | 2025-05-03 08:59 | XMS_ITS | Clinical Summary ---
Author Organization Patient Business [facility] Address [address] [place] [address] Care Team Providers Care It Consulting Director Name Role Phone Beronica Victor LOGISTICS PLANNING MANAGER Primary Care Provider [phone] Allergies Active Allergy Reactions Criticality Noted Date Comments Lamotrigine Medium 12/09/2021 Other reaction(s): hives,swelling Medications topiramate (TOPAMAX) 25 mg tablet Take 1 tablet (25 mg total) by mouth 1 (one) time each day. 1 tab po in am, 2 tabs po pm Active busPIRone (BUSPAR) 10 mg tablet Take 1 tablet (10 mg total) by mouth 1 (one) time each day. Active multivit with min-folic acid 200 mcg tablet,chewable Chew. Active propranoloL (INDERAL) 10 mg tablet Take 1 tablet (10 mg total) by mouth. Active lithium 150 mg capsule Active Caplyta 42 mg capsule Active estradioL (VIVELLE-DOT) 0.05 mg/24 hrIndications:Surgi dede menopause Place 1 patch on the skin 2 (two) times a week. 24 patch 1 5 026 Active methIMAzole (TAPAZOLE) 5 mg tabletIndications:S ubclinical hyperthyroidism Take 0.5 tablets (2.5 mg total) by mouth 1 (one) time each day. 45 tablet 1 5 Active estradioL (ESTRACE) 1 mg tabletIndications:N ight sweats,Surgical menopause Take 1 tablet (1 mg total) by mouth 1 (one) time each day. 90 tablet 1 5 025 Discontin ued(Formu hazel change) methIMAzole (TAPAZOLE) 5 mg tabletIndications:S ubclinical hyperthyroidism Take 0.5 tablets (2.5 mg total) by mouth 1 (one) time each day. 45 tablet 1 5 025 Discontin ued(Reord er) Vraylar 1.5 mg capsule Take 1 capsule (1.5 mg total) by mouth 1 (one) time each day. 5 025 Discontin ued(Thera py completed ) Active Problems Problem Noted Date Diagnosed Date Subclinical hyperthyroidism 05/02/2025 Pituitary microadenoma ([facility] V24, [facility] V28 ) 05/02/2025 Encounter for gynecological examination with abnormal finding 09/19/2024 Cervical cancer screening 09/19/2024 Screening mammogram for breast cancer 09/19/2024 Cervical high risk HPV (human papillomavirus) te st positive 09/19/2024 Night sweats 09/19/2024 Surgical menopause 09/19/2024 Diverticulosis 06/16/2024 Major depressive disorder, r ecurrent, unspecified ([facility] V24) 07/22/2019 Cervical lymphadenopathy 02/25/2018 Pelvic pain in female 07/17/2014 Kidney stones 04/12/2013 Bipolar affective ([facility] V24, [facility] V28) Overview (06/16/2024): Sees psychiatrist Assessment & Plan (09/09/2024 11:03 AM EST): Allergic rhinitis 07/09/2011 Encounters Date Type Department Care Team Description 05/02/2025 8:00 AM EDT Office Visit Endocrinology [address] [address] Michelle Tyson MD Subclinical hyperthyroidism (Primary Dx); Pituitary microadenoma ([facility] V24, [facility] V28) 04/18/2025 8:29 AM EDT - 04/18/2025 11:59 PM EDT Hospital Encounter [facility] [address] [place] [address] Calcification of left breast Discharge Disposition: Home or Self Care 04/18/2025 Results Follow-Up OBJESUS[facility] [place] [address] [place], [place] [address]ton[place] [phone] Liliane Pillai NP 04/06/2025 9:00 AM EDT Office Visit [facility] [place] [address] [facility] [place] [phone] Liliane Pillai NP Surgical menopause (Primary Dx) from Last 3 Months Immunizations Immunization Administration Dates Next Due H1N1 Inj Preservative Free 03/04/2017 Influenza trivalent, 0.5mL, preservative free (Fluarix; FluLaval; Fluzone) ages 6mo and older (Afluria) 3 years and older 03/11/2018 Influenza trivalent, MDCK, 0 .5mL, preservative free (Flucelvax) 6mo and older 03/14/2024 Moderna SARS-CoV-2 COVID-19, mRNA, LNP-S, preservative free 11/08/2020 Tdap Tetanus diptheria acell ular pertussis (Boostrix; Adacel) 7yo and older 07/29/2011,09/13/2010 Surgical History Surgery Date Site/Laterality Comments OTHER SURGICAL HISTORY 1989 PROCEDURE: [place] UNLISTED PROCEDURE EXTRAOCULAR MUSCLE; COMMENT: left eye OTHER SURGICAL HISTORY 1991 PROCEDURE: [place] UNLISTED PROCEDURE EXTRAOCULAR MUSCLE; COMMENT: left and right eye KNEE ARTHROPLASTY 1999 PROCEDURE: [place] ARTHRS KNEE ABRASION ARTHRP/MEDICAL CASE WORKER DRLG/MICROFX; COMMENT: right knee KNEE ARTHROPLASTY 2001 PROCEDURE: [place] ARTHRS KNEE ABRASION ARTHRP/MEDICAL CASE WORKER DRLG/MICROFX; COMMENT: right knee with screws KNEE ARTHROPLASTY 2004 PROCEDURE: [place] ARTHRS KNEE ABRASION ARTHRP/MEDICAL CASE WORKER DRLG/MICROFX; COMMENT: two on same knee ROBOTIC ASSISTED HYSTERECTOMY 07/31/2015 PROCEDURE: HISTORICAL ROBOTIC HYSTERECTOMY WITH OR WITHOUT BSO; COMMENT: da Kali total hysterectomy with right salpingectomy performed by Dr. Reed. LAPAROSCOPY DIAGNOSTIC / BIOPSY / ASPIRATION / LYSIS 09/15/2014 Left PROCEDURE: PELVIS LAPAROSCOPY, DIAGNOSTIC; COMMENT: Laparoscopic left salpingectomy performed by Dr. Frias OTHER SURGICAL HISTORY 09/2019 Right PROCEDURE: [place] UNLISTED PROCEDURE FOREARM/WRIST; COMMENT: [place] COLONOSCOPY 05/16/2020 PROCEDURE: HISTORICAL COLONOSCOPY; COMMENT: diverticulosis APPENDECTOMY SECTION, LOW TRANSVERSE EYE SURGERY HYSTERECTOMY TOTAL CERVIX REMOVED Medical History Medical History Date Comments Mononucleosis 09/11/2010 DX:Mononucleosis Bipolar affective (CMS/HCC V24, CMS/HCC V28) 2 10/2011 DX:Bipolar affective ([facility]) Acne vulgaris 06/03/2012 DX:Acne vulgaris Kidney stone DX:Kidney stone Migraine with aura DX:Migraine w ith aura Diverticulosis DX:Diverticulosi s Anxiety Depression Pneumonia Allergic rhinitis Urinary tract infection Varicella Family History Medical History Relation Name Comments Breast cancer Cousin Breast cancer Maternal Grandmother dx'd ?? Diabetes Maternal Grandmother dx'd ?? Glaucoma Maternal Grandmother dx'd ?? Breast cancer Mother Ella Cancer Mother Ella Depression Mother Ella Mental illness Mother Ella OCD Other cancer Mother Ella skin Inflammatory bowel disease Mother's Sister Lala Colon cancer Neg Hx Relation Name Status Comments Cousin Alive Daughter Venessa Alive Father Alive Maternal Grandfather Maternal Grandmother dx'd ?? Mother Ella Alive Mother's Sister Lala Paternal Grandfather Paternal Grandmother Sister Alive Son 1 Adán Alive Son 2 Max Alive Social History Tobacco Use Types Packs/Day Years Used Date Smoking Tobacco: Never Smokeless Tobacco: Never Tobacco Cessation:Counseling Given: Not Answered Alcohol Use Standard Drinks/Week Comments Not Currently [...] do you feel lonely or isolated from ose around you? Never 09/13/2024 Food Risk [...] for your loved ones. For example, child and family services worker or elderly care for an older adult? [...] Orientation Straight 07/25/2024 10 :13 AM EST Obstetrics History Para Term AB IAB SAB Ectopic Multiple Livin g Live Births 3 3 3 3 3 Date Outcome GA Total Labor Labor/2nd/3rd Weight Sex Type Anes PTL Kimberly A1 A5 Name Clin 2007 Term 40w 0d F CS-Un spec Livin g [place] Comments:CPD 2009 Term 42w 0d M CS-Un spec Livin g Dony [facility] Comments:Failed 2010 Term 39w 0d M CS-Un spec Livin g Max [facility] Last Filed Vital Signs Vital Sign Reading Time Taken Comments Blood Pressure 95/55 05/02/2025 7:50 AM EDT Pulse 71 05/02/2025 7:50 AM EDT Temperature 36.2 C (97.1 F) 12/28/2024 9:23 AM EDT Respiratory Rate 13 05/02/2025 7:50 AM EDT Oxygen Saturation 99% 12/28/2024 9:23 AM EDT Inhaled Oxygen Concentration - - Weight 71.7 kg (158 lb) 05/02/2025 7:50 AM EDT Height 160 cm (5' 3 ) 05/02/2025 7:50 AM EDT Body Mass Index 27.99 05/02/2025 7:50 AM EDT Plan of Treatment Upcoming Encounters Date Type Department Care Team (Late st Contact Info) Description 10/09/2025 7:00 AM EDT Office Visit OBGYN [facility] [address] [facility] [place] [address] Liliane Pillai, JESUS [address] [facility] [address] [place] [address] 10/17/2025 8:30 AM EDT Appointment [facility] [address] [place] [address] 10/31/2025 8:40 AM EDT Office Visit Endocrinology - [place] [address] [place] [address] Michelle Tyson MD [address] [place] [address] Health Maintenance Due Date Last Done Comments Hepatitis B Vaccines (1 of 3 - 19+ 3-dose series) 2004 HPV Vaccines (1 - 3-dose SCD M series) 2012 HIV Screening 03/21/2020 Hepatitis C Screening 03/21/2020 DTaP,Tdap,and Td Vaccines (3 - Td or Tdap) 07/29/2021 07/29/2011, 09/13/2010 COVID-19 Vaccine (4 - 2025-2 6 season) 2025 06/11/2021, 11/08/2020, 10/11/2020 Influenza Vaccine (#1) 2025 , 03/11/2018, 03/04/2017 Social Influencers of Health Screening 09/13/2025 09/13/2024 Breast Cancer Screening 04/18/2027 04/18/20, 10/11/2024, 09/29/2024 Cholesterol Screening (Lipid Panel) 09/09/2029 09/09/2024, 05/05/2019 RSV Immunization Adult Patients (1 - 1-dose 75+ series) 2060 Depression Screening Completed 03/30/2025 HIB Vaccines Aged Out No longer eligi ble based on patient's age to complete this topic Hepatitis A Vaccines Aged Out No long er eligible based on patient's age to complete this topic IPV Vaccines Aged Out No longer eligi ble based on patient's age to complete this topic MMR Vaccines Aged Out No longer eligi ble based on patient's age to complete this topic Meningococcal ACWY Vaccine Aged Out N o longer eligible based on patient's age to complete this topic Meningococcal B Vaccine Aged Out No l onger eligible based on patient's age to complete this topic Pneumococcal Vaccine: Pediatrics (0 to 5 Years) and At-Risk Patients (6 to 49 Years) Aged Out No longer eligible b ased on patient's age to complete this topic RSV Immunization Patients Under 20 months Aged Out No longer eligible b ased on patient's age to complete this topic Varicella Vaccines Aged Out No longer eligible based on patient's age to complete this topic Procedures Procedure Name Priority Date/Time Associated Diagnosis Comments MG MAMMO DIGITAL DIAGNOSTIC LEFT Routine 04/18/2025 9:06 AM EDT Calcification of left breast LIPID PANEL WITH REFLEX TO DIRECT LDL Routine 09/09/2024 11:40 AM EST Screening for cholesterol level from Last 3 Months or Most Recently Relevant to Health Maintenance Results * MG Mammo Digital Diagnostic Left (04/18/2025 9:06 AM EDT) Anatomical Region Laterality Modality Breast Left Mammography 04/18/2025 9:13 AM EDT Impressions 04/18/2025 9:16 AM EDT No significant interval change in probably benign calcifications in the left breast. Additional six-month follow-up diagnostic left breast mammogram with magnification views is recommended. OVERALL ASSESSMENT: BI-RADS 3 - PROBABLY BENIGN RECOMMENDATION: Short Interval Follow-up is recommended for the left breast in 6 months. The patient will receive a patient lay summary regarding their personal breast density per current federal guidelines. Verbal communication of these findings and recommendations was given to the patient at the time of the examination. [facility], [address] [place] [address], [address], [phone] -------- FINAL REPORT -------- Dictated By: Malini Arechiga Dictated Date: 04/18/2025 09:13 ET Assigned Physician: Malini Arechiga Reviewed and Electronically Signed By: Malini Arechiga Signed Date: 04/18/2025 09:16 ET Workstation ID: [id number] Transcribed By: Self Edit Transcribed Date: 04/18/2025 09:13 ET Narrative 04/18/2025 9:16 AM EDT EXAMINATION: MM DIGITAL DIAGNOSTIC MAMMOGRAM WITH TOMOSYNTHESIS, LEFT CLINICAL INFORMATION: 40 years old, Female, 6 month follow-up. COMPARISON: Multiple priors dating to 09/29/2024 TECHNIQUE: Additional views were obtained of the left breast(s) using tomosynthesis technique. Targeted sonographic evaluation was performed using a high frequency linear transducer. MAMMOGRAM FINDINGS: C - The breasts are heterogeneously dense which may obscure small masses. No suspicious masses, grouped calcifications or architectural distortion. There is been no significant interval change in the grouped punctate calcifications in the lateral left breast which appear probably benign. No suspicious masses or architectural distortion. CAD was utilized for this examination and, after further review, no additional findings are identified. Procedure Note Malini Arechiga MD - 04/18/2025 EXAMINATION: MM DIGITAL DIAGNOSTIC MAMMOGRAM WITH TOMOSYNTHESIS, LEFT CLINICAL INFORMATION: 40 years old, Female, 6 month follow-up. COMPARISON: Multiple priors dating to 09/29/2024 TECHNIQUE: Additional views were obtained of the left breast(s) using tomosynthesistechnique. Targeted sonographic evaluation was performed using a highfrequency linear transducer. MAMMOGRAM FINDINGS: C - The breasts are heterogeneously dense which may obscure smallmasses. No suspicious masses, grouped calcifications or architecturaldistortion. There is been no significant interval change in the grouped punctatecalcifications in the lateral left breast which appear probably benign. Nosuspicious masses or architectural distortion. CAD was utilized for this examination and, after further review, noadditional findings are identified. IMPRESSION: No significant interval change in probably benign calcifications in theleft breast. Additional six-month follow-up diagnostic left breastmammogram with magnification views is recommended. OVERALL ASSESSMENT: BI-RADS 3 - PROBABLY BENIGN RECOMMENDATION: Short Interval Follow-up is recommended for the left breast in 6 months. The patient will receive a patient lay summary regarding their personalbreast density per current federal guidelines. Verbal communication of these findings and recommendations was given tothe patient at the time of the examination. [facility], [address] [place] [address], [address], [phone] -------- FINAL REPORT -------- Dictated By: Malini Arechiga Dictated Date: 04/18/2025 09:13 ET Assigned Physician: Malini Arechiga Reviewed and Electronically Signed By: Malini Arechiga Signed Date: 04/18/2025 09:16 ET Workstation ID: [id number] Transcribed By: Self Edit Transcribed Date: 04/18/2025 09:13 ET Liliane Pillai NP IMG BI PROCEDURES Final Result * Lipid panel with reflex to direct LDL (09/09/2024 11:40 AM EST) Cholesterol 184 0 - 200 mg/dL LAB CHEMISTRY METHOD 09/09/2024 2:25 PM EST [facility] Triglycerides 94 <150 mg/dL LAB CHEMISTRY METHOD 09/09/2024 2:25 PM EST [facility] HDL 42 35 - 80 mg/dL LAB CHEMISTRY METHOD 09/09/2024 2:25 PM EST [facility] LDL Calculated 123 50 - 130 mg/dL LAB CHEMISTRY METHOD 09/09/2024 2:25 PM EST [facility] VLDL Cholesterol Dede 18.8 mg/dL LAB CHEMISTRY METHOD 09/09/2024 2:25 PM EST [facility] Comment:No established refer ence range. Blood Venous blood specimen / Unknown Venipuncture / Unknown 09/09/2024 11:40 AM EST 09/09/2024 11:40 AM EST us Beronica Victor NP LAB BLOOD ORDERABLES Final Result [facility] [address] [place] [address], [place] [phone] from Last 3 Months or Most Recently Relevant to Health Maintenance Insurance [facility] Care Teams It Consulting Director Relationship Specialty Start Date End Date Beronica Victor NP [address] [place] [address] [address] [place] [address] PCP - General Family Medicine 07/25/24
--- OUTSIDE RECORDS SUMMARY | 2025-05-03 08:59 | XMS_ITS | Encounter Summary ---
Author Organization [facility] Address [address] [place] [address] Care Team Providers Care Plating Operator Name Role Phone Beronica Victor DEMAND EQUIPMENT REPAIRER Primary Care Provider [phone]- [phone] Encounter Details Date Type Department Care Team ([facility] Contact Info) Description 04/18/2025 Results Follow-Up [facility] [place] [address] [facility] [place] [phone] Liliane Pillai NP 47 [facility] [address], [place] [id number] Social History Tobacco Use Types Packs/Day Years [...] for your loved ones. For example, child & adolescent psychiatrist or elderly care for an [...] AM EST documented as of this encounter Plan of Treatment Upcoming Encounters Date Type Department Care Team (Late st Contact Info) Description 10/09/2025 7:00 AM EDT Office Visit [facility] [place] [address] [place] [phone] Liliane Pillai NP [address] [place] [address] 10/17/2025 8:30 AM EDT Appointment [facility] [place] [address] [place] [phone] 10/31/2025 8:40 AM EDT Office Visit Endocrinology - [place] [address] [place] [address] Michelle Tyson MD [address] [place], [place] documented as of this encounter Visit Diagnoses Not on filedocumented in this encounter Additional Health Concerns Assessment Noted Time PHQ-9 Depression Total Score: 3 03/30/20 9:25 AM EDT documented as of this encounter Care Teams Plating Operator Relationship Specialty Start Date End Date Beronica Victor NP [address] [facility] [address] [place] [address] PCP - General Family Medicine 07/25/24 documented as of this encounter
== END 2025-05-03 08:46 | disposition home or self-care (01) ==
LOC: HO.HSM 08:27
PROVIDERS: PCP Pediatrics; Referring Provider Pediatrics; Visit Provider Registered Nurse
DX: G43.109 Migraine with aura, not intractable, without status migrainosus (principal); G43.009 Migraine without aura, not intractable, without status migrainosus; D35.2 Benign neoplasm of pituitary gland
CPT/HCPCS: 99214

== ENCOUNTER 2025-06-23 08:52 | Outpatient (AMB) | payer BC, SELFPAY ==
--- NOTE | 2025-06-23 08:59 | A.OFFVIS_ITS ---
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 She was doing okay. Headaches were much better with increased dose of topiramate and she did not have any recent headaches. No medication side effects. Sleep was okay. [facility] Medical History (Updated 05/03/25 @ 08:40 by Glendy Deal CNP) Depression Bipolar disorder Review of Systems Const Denies chills, Denies daytime sleepiness, Denies difficulty sleeping, Denies fatigue, Denies fever(s), Denies frequent falls, Reports headache(s), Denies increased appetite, Denies poor appetite, Denies snoring, Denies weakness, Denies weight gain and Denies weight loss Eyes Denies loss of vision ENT Denies vertigo, Denies dizziness and Reports headache(s) Card Denies chest pain at rest, Denies chest pain with activity, Denies syncope, Denies leg edema and Denies palpitations Resp Denies snoring GI Denies constipation, Denies heartburn, Denies diarrhea and Denies nausea Denies urinary frequency, Denies urinary incontinence and Denies urinary urgency Musc Denies abnormal gait, Denies numbness and Denies tingling Skin/Breast Denies dry skin and Denies rash Neuro Denies abnormal gait, Denies vertigo, Denies dizziness, Denies syncope, Denies frequent falls, Reports headache(s), Denies lack of coordination, Denies loss of vision, Denies memory loss, Denies numbness, Denies restless legs, Denies seizure-like activity, Denies tingling, Denies paresthesias, Denies tremor(s) and Denies weakness Psych Denies anxiety, Denies depression, Denies auditory hallucinations, Denies memory loss, Denies visual hallucinations and Denies suicidal ideation Endo Denies fatigue and Denies palpitations Physical Exam Const Other: General Appearance:? normal, in no acute distress. Skin:? no rashes, no significant birthmarks. Heart:? S1, S2 normal, no murmurs. Lungs:? clear anteriorly and posteriorly. Extremities:? no edema. Psych:? alert, oriented, cognitive function intact, cooperative with exam. Neuro Other: Mental Status:?Normal attention, orientation, memory and affect.? Cranial Nerves:?Pupils are equal, round and reactive to light. External occular muscles are intact. Visual rey are full. Face is symmetrical. Facial sensations are normal. Tongue is midline. Palate elevates symmetrically. Shoulder shrugging is normal. Hearing to bedside conversation is normal. Sensory Exam:?....? Coordination:?No ataxia,?no titubation.? Gait Exam: Within normal limits. Extrapyramidal System:?No tremor, rigidity with normal facial expressions.? Pronator Drift:?Not present.? Involuntary Movements:?No tremors seen.? Speech:?Normal.? Results Reviewed Results Reviewed: Labs at [place] in Oct 2023: FSH 6.3, LH 5.2, estradiol 66.6, prolactin 13, Insulin like growth factor 1: 248, TSH 0.54, T4 1.05, Cortisol 7.5: All normal. MRI brain [facility] at [facility] in May 2024: No change from prior study 04/12/2024 (reported) MRI brain [facility] at [facility] in Apr 2024: Small Rathke's cyst MRI brain [facility] at [facility] in Oct 2023: 3.2mm x 4.6mm x 2.8mm pituitary lesion MRI brain at [facility] in Oct 2021: 2mm lesion in pitutary w/o enhancement Assessment & Plan Assessment & Plan (1) Migraine with aura: Code(s): G43.109 - Migraine with aura, not intractable, without status migrainosus Category: Medical Qualifiers: Status migrainosus presence: without status migrainosus Intractability: not intractable Qualified Code(s): G43.109 - Migraine with aura, not intractable, without status migrainosus Plan: Continue topiramate 50mg 1 tablet twice a day. Follow up in 6 months or sooner as needed. (2) Migraine without aura: Code(s): G43.009 - Migraine without aura, not intractable, without status migrainosus Category: Medical Qualifiers: Status migrainosus presence: without status migrainosus Intractability: not intractable Qualified Code(s): G43.009 - Migraine without aura, not intractable, without status migrainosus (3) Migraine equivalent: Code(s): G43.109 - Migraine with aura, not intractable, without status migrainosus Category: Medical (4) Pituitary adenoma: Code(s): D35.2 - Benign neoplasm of pituitary gland Category: Medical Plan: MRI results reviewed, no change from previous. Plan . Medications: New topiramate 50 mg PO BID 180 tabs 1RF 90 days Discontinued topiramate Discontinued Reason: Doctor's Order 50 mg (2 x 25 mg) PO BID 90 days 360 tabs 1RF Coding Level of Care Code Est Pt Level 4 (58592) Diagnoses Migraine with aura and without status migrainosus, not intractable G43.109 Status migrainosus presence: without status migrainosus Intractability: not intractable Migraine without aura and without status migrainosus, not intractable G43.009 Status migrainosus presence: without status migrainosus Intractability: not intractable Migraine equivalent G43.109 Pituitary adenoma D35.2
--- OUTSIDE RECORDS SUMMARY | 2025-06-23 09:11 | XMS_ITS | Patient Health Record ---
Author Organization [facility] Address [address] [facility] [address] [place] [address] Care Team Providers Care Keno Terminal Operator Name Role Phone [place]-Mari Victor Primary Care Provider Un available LUTHER BARRERA Unavailable [phone] Allergies No Known Allergies Reason For Referral No Information Medications Medication SIG (Take, Route, Frequency, Duration) Notes Start Date End Date Status PROzac 40 MG 1 capsule Orally Onc e a day Not-Taking Multi Vitamin/Minerals - as directed Orally Active [place] Carbonate 300 MG 1 capsule at be [...] Date Coverage End Date [employer] [address] [place] [address] [id number] Kenisha Carson Self - patient is the [...]
--- OUTSIDE RECORDS SUMMARY | 2025-06-23 09:11 | XMS_ITS | Encounter Summary ---
Author Organization [facility] Address [address] [place] [address] Care Team Providers Care Fiction And Nonfiction Writer Prose Name Role Phone Beronica Victor PUBLIC INFORMATION SPECIALIST Primary Care Provider [phone]- [phone] Encounter Details Date Type Department Care Team ([facility] Contact Info) Description 04/18/2025 Results Follow-Up [facility] [place] [facility] [place] [phone] Liliane Pillai NP 47 [facility] [address], [place] [phone] Social History Tobacco Use Types Packs/Day Years [...] care for your loved ones. For example, children's entertainer or elderly care for an older adult? [...] Office Visit [facility] [place] [address] [place] [phone] Liliane Pillai NP [address] [place] [address] 10/17/2025 8:30 AM EDT Appointment [facility] [place] [address] [place] [phone] 10/31/2025 8:40 AM EDT Office Visit Endocrinology - [place] [address] [place] [address] Michelle Tyson MD [address] [place], [place] documented as of this encounter Visit Diagnoses Not on filedocumented in this encounter Additional Health Concerns Assessment Noted Time PHQ-9 Depression Total Score: 3 03/30/20 9:25 AM EDT documented as of this encounter Care Teams Fiction And Nonfiction Writer Prose Relationship Specialty Start Date End Date Beronica Victor NP 95 [facility] [address] [place] [address] PCP - General Family Medicine 07/25/24 documented as of this encounter
--- OUTSIDE RECORDS SUMMARY | 2025-06-23 09:11 | XMS_ITS | Clinical Summary ---
Author Organization [facility] [employer] [facility] Address [address] [place] [address] Care Team Providers Care Supervisor Picking Crew Name Role Phone Beronica Victor INSPECTOR DIALS Primary Care Provider +1- [phone] Allergies Active Allergy Reactions Criticality Noted Date [...] mg capsule Active estradioL (VIVELLE-DOT) 0.05 mg/24 hrIndications:Surgic al menopause Place 1 patch on the skin 2 (two) times a week. 24 patch 1 5 04/06/20 26 Active methIMAzole (TAPAZOLE) 5 mg tabletIndications:Strauss bclinical hyperthyroidism Take 0.5 tablets (2.5 mg total) by mouth 1 (one) time each day. 45 tablet 1 5 Active Active Problems Problem Noted Date Diagnosed Date Subclinical hyperthyroidism 05/02/2025 Pituitary microadenoma 05/02/2025 Encounter for gynecological examination with abnormal finding 09/19/2024 Cervical cancer screening 09/19/2024 Screening mammogram for breast cancer 09/19/2024 Cervical high risk HPV (human papillomavirus) te st positive 09/19/2024 Night sweats 09/19/2024 Surgical menopause 09/19/2024 Diverticulosis 06/16/2024 Major depressive disorder, recurrent, unspecifie d 07/22/2019 Cervical lymphadenopathy 02/25/2018 Pelvic pain in female 07/17/2014 Kidney stones 04/12/2013 Bipolar affective 07/29/2011 Overview (06/16/2024): Sees psychiatrist Assessment & Plan (09/09/2024 11:03 AM EST): Allergic rhinitis 07/09/2011 Encounters Date Type Department Care Team Description 05/10/2025 Results Follow-Up Endocrinology - [address] [phone] Michelle Tyson MD 05/08/2025 9:40 AM EST Lab Draw Station - [address] [phone] Pituitary microadenoma (CMS/HCC V24, CMS/HCC V28); Subclinical hyperthyroidism 05/02/2025 8:00 AM EDT Office Visit Endocrinology - [address] [phone] Michelle Tyson MD Subclinical hyperthyroidism (Primary Dx); Pituitary microadenoma (CMS/HCC V24, CMS/HCC V28) 04/18/2025 8:29 AM EDT - 04/18/2025 11:59 PM EDT Hospital Encounter [facility] [place] [address] [place] [address] Calcification of left breast Discharge Disposition: Home or Self Care 04/18/2025 Results Follow-Up [facility] [place] [address] [place], [place] [phone] Liliane Pillai NP 04/06/2025 9:00 AM EDT Office Visit [facility] [place] [address] [place] [phone] Liliane Pillai NP Surgical menopause (Primary Dx) [...] Site/Laterality Comments OTHER SURGICAL HISTORY 1989 PROCEDURE: CA UNLISTED PROCEDURE EXTRAOCULAR MUSCLE; COMMENT: left eye OTHER SURGICAL HISTORY 1991 PROCEDURE: CA UNLISTED PROCEDURE EXTRAOCULAR MUSCLE; COMMENT: left and right eye KNEE ARTHROPLASTY 1999 PROCEDURE: CA ARTHRS KNEE ABRASION ARTHRP/MANUFACTURING COST ESTIMATOR DRLG/MICROFX; COMMENT: right knee KNEE ARTHROPLASTY 2001 PROCEDURE: CA ARTHRS KNEE ABRASION ARTHRP/MANUFACTURING COST ESTIMATOR DRLG/MICROFX; COMMENT: right knee with screws KNEE ARTHROPLASTY 2004 PROCEDURE: CA ARTHRS KNEE ABRASION ARTHRP/MANUFACTURING COST ESTIMATOR DRLG/MICROFX; COMMENT: two on same knee ROBOTIC ASSISTED HYSTERECTOMY 07/31/2015 PROCEDURE: HISTORICAL ROBOTIC HYSTERECTOMY WITH OR WITHOUT BSO; COMMENT: da [place] total hysterectomy with right salpingectomy performed by Dr. Reed. LAPAROSCOPY DIAGNOSTIC / BIOPSY / ASPIRATION / LYSIS 09/15/2014 Left PROCEDURE: PELVIS LAPAROSCOPY, DIAGNOSTIC; COMMENT: Laparoscopic left salpingectomy performed by Dr. Frias OTHER SURGICAL HISTORY 09/2019 Right PROCEDURE: [place] UNLISTED PROCEDURE FOREARM/WRIST; COMMENT: in [place] COLONOSCOPY 05/16/2020 PROCEDURE: HISTORICAL COLONOSCOPY; COMMENT: diverticulosis APPENDECTOMY SECTION, LOW TRANSVERSE EYE SURGERY HYSTERECTOMY TOTAL CERVIX REMOVED Medical History Medical History Date Comments Mononucleosis 09/11/2010 DX:Mononucleosis Bipolar affective (CMS/HCC V24, CMS/HCC V28) 07/07 DX:Bipolar affective ([facility]) Acne vulgaris 06/03/2012 DX:Acne vulgaris Kidney stone [...] care for your loved ones. For example, attendant child activity or elderly care for an older adult? [...] 0d M CS-Un spec Livin g [facility] Last Filed Vital Signs Vital Sign Reading [...] 10/09/2025 7:00 AM EDT Office Visit OBGYN - [place] [address] [facility] [place] [phone] Liliane Pillai, JESUS [address] [facility] [address] [place], [place] [phone] 10/17/2025 8:30 AM EDT Appointment [facility] [address] [place] [phone] 10/31/2025 8:40 AM EDT Office Visit Endocrinology - [place] [address] [place] [address] Michelle Tyson MD [address] [place] [address] Health Maintenance Due Date Last Done Comments Hepatitis B Vaccines (1 of 3 - 19+ 3-dose series) 2004 HPV Vaccines (1 - 3-dose SCD M series) 2012 HIV Screening 03/21/2020 Hepatitis C Screening 03/21/2020 DTaP,Tdap,and Td Vaccines (3 - Td or Tdap) 07/29/2021 07/29/2011, 09/13/2010 COVID-19 Vaccine ( - 2024-2 6 season) 2025 06/11/2021, 11/08/2020, 10/11/2020 Influenza Vaccine (#1) 2025 , 03/11/2018, 03/04/2017 Social Influencers of Health Screening 09/13/2025 09/13/2024 Breast Cancer Screening 04/18/2027 04/18/20 25, 10/11/2024, 09/29/2024 Cholesterol Screening (Lipid Panel) 09/09/2029 [...] Procedure Name Priority Date/Time Associated Diagnosis Comments TRIIODOTHYRONINE FREE Routine 05/08/2025 9:40 AM EST Subclinical hyperthyroidism THYROXINE FREE Routine 05/08/2025 9:40 AM EST Subclinical hyperthyroidism THYROID STIMULATING HORMONE Routine 05/08/2025 9:40 AM EST Subclinical hyperthyroidism INSULIN-LIKE GROWTH FACTOR Routine 05/08/2025 9:40 AM EST Pituitary microadenoma (CMS/HCC V24, CMS/HCC V28) PROLACTIN Routine 05/08/2025 9:40 AM EST Pituitary microadenoma (CMS/HCC V24, CMS/HCC V28) MG MAMMO DIGITAL DIAGNOSTIC LEFT Routine 04/18/2025 9:06 AM EDT Calcification of left breast LIPID PANEL WITH REFLEX TO DIRECT LDL Routine 09/09/2024 11:40 AM EST Screening for cholesterol level from Last 3 Months or Most Recently Relevant to Health Maintenance Results * Prolactin (05/08/2025 9:40 AM EST) Prolactin 11.40 See Comment ng/mL LAB CHEMISTRY METHOD 05/08/2025 4:25 PM EST [facility] Comment: Prolactin Reference Ranges (ng/mL) Non 2.2 - 30.3 8.1 - 347.6 Postmenopausal 0.7 - 31.5 Blood Venous blood specimen / Unknown Venipuncture / Unknown 05/08/2025 9:40 AM EST 05/08/2025 9:40 AM EST Michelle Tyson MD LAB BLOOD ORDERABLES Final Result Performing Organization Address City/[facility]/ZIP Co de Phone Number [facility] [address] [place] [address], * Insulin-like growth factor (05/08/2025 9:40 AM EST) Pathologist [facility] Insulin-like Growth Factor 1 217 79 - 259 ng/mL 05/10/2025 1:33 PM EST [facility] Comment: Test performed at [facility], [address] , [place] [address] Becky Jean-Baptiste MD, PhD - Database Report Writer Blood Venous blood specimen / Unknown Venipuncture / Unknown 05/08/2025 9:40 AM EST 05/08/2025 9:40 AM EST Michelle Tyson MD LAB BLOOD ORDERABLES Final Result [facility] [address] [place] [address] * Triiodothyronine free (05/08/2025 9:40 AM EST) T3, Free 272 230 - 420 pcg/dL LAB CHEMISTRY METHOD 05/08/2025 5:03 PM EST [facility] Blood Venous blood specimen / Unknown Venipuncture / Unknown 05/08/2025 9:40 AM EST 05/08/2025 9:40 AM EST Michelle Tyson MD LAB BLOOD ORDERABLES Final Result Performing Organization Address [facility]/ZIP Co de Phone Number [facility] [address] [place] [address], [place] [phone] * Thyroid stimulating hormone (05/08/2025 9:40 AM EST) TSH 1.25 0.40 - 4.00 mcIU/mL LAB CHEMISTRY METHOD 05/08/2025 5:03 PM EST [facility] Blood Venous blood specimen / Unknown Venipuncture / Unknown 05/08/2025 9:40 AM EST 05/08/2025 9:40 AM EST Michelle Tyson MD LAB BLOOD ORDERABLES Final Result Performing Organization Address [facility] Co de Phone Number [facility] [address] [place] [address], [place] [phone] * Thyroxine free (05/08/2025 9:40 AM EST) Free T4 0.93 0.70 - 1.80 ng/dL LAB CHEMISTRY METHOD 05/08/2025 5:03 PM EST [facility] Blood Venous blood specimen / Unknown Venipuncture / Unknown 05/08/2025 9:40 AM EST 05/08/2025 9:40 AM EST us Michelle Tyson MD LAB BLOOD ORDERABLES Final Result Performing Organization Address City/[facility]/ZIP Co de Phone Number [facility] [address] [place] [address], [place] [phone] * MG Mammo Digital Diagnostic Left (04/18/2025 [...] at the time of the examination. [facility], [address] [place] [address], [phone], [phone] -------- FINAL REPORT -------- Dictated By: Malini Arechiga Dictated Date: 04/18/2025 09:13 ET Assigned Physician: Malini Arechiga Reviewed and Electronically Signed By: Malini Arechiga Signed Date: 04/18/2025 09:16 ET Workstation ID: [id number] Transcribed By: Self Edit Transcribed Date: 04/18/2025 [...] at the time of the examination. [facility], [address] [place] [address], [address], [phone] -------- FINAL REPORT -------- Dictated By: Malini Arechiga Dictated Date: 04/18/2025 09:13 ET Assigned Physician: Malini Arechiga Reviewed and Electronically Signed By: Malini Arechiga Signed Date: 04/18/2025 09:16 ET Workstation ID: [id number] Transcribed By: Self Edit Transcribed Date: 04/18/2025 09:13 ET Liliane Pillai NP IM BI PROCEDURES Final Result * Lipid panel with reflex to direct LDL (09/09/2024 11:40 AM EST) Cholesterol 184 0 - 200 mg/dL LAB CHEMISTRY METHOD 09/09/2024 2:25 PM EST [facility] Triglycerides 94 <150 mg/dL LAB CHEMISTRY METHOD 09/09/2024 2:25 PM EST [facility] HDL 42 35 - 80 mg/dL LAB CHEMISTRY METHOD 09/09/2024 2:25 PM EST [facility] LDL Calculated 123 50 - 130 mg/dL LAB CHEMISTRY METHOD 09/09/2024 2:25 PM EST [facility] VLDL Cholesterol Ye 18.8 mg/dL LAB CHEMISTRY METHOD 09/09/2024 2:25 PM EST [facility] Comment:No established refer ence range. Blood Venous blood specimen / Unknown Venipuncture / Unknown 09/09/2024 11:40 AM EST 09/09/2024 11:40 AM EST Beronica Victor NP LAB BLOOD ORDERABLES Final Result [facility] [address] [place] [address], from Last 3 Months or Most Recently Relevant to Health Maintenance Insurance [facility] Care Teams Supervisor Picking Crew Relationship Specialty Start Date End Date Beronica Victor NP [address] [place] [address] [address] [place] [address] PCP - General Family Medicine 07/25/24
--- OUTSIDE RECORDS SUMMARY | 2025-06-23 09:11 | XMS_ITS | Encounter Summary ---
Author Organization [facility] Address [address] [place] [address] Care Team Providers Care Regional Education Coordinator Name Role Phone Beronica Victor AUDIT REVIEWER Primary Care Provider [phone]- [phone] Encounter Details Date Type Department Care Team ([facility] st Contact Info) Description 05/10/2025 Results Follow-Up Endocrinology - [place] [address] [place] [address] Michelle Tyson MD [address] [place] [address] Social History Tobacco Use Types Packs/Day Years [...] for your loved ones. For example, children's minister or elderly care for an older adult? [...] Office Visit [facility] [place] [address] [place], [place] [phone] Liliane Pillai NP [address] [place] [address] 10/17/2025 8:30 AM EDT Appointment [facility] [place] [address] [place] [address] 10/31/2025 8:40 AM EDT Office Visit Endocrinology - [place] [address] [place] [address] Michelle Tyson MD [address] [place], [place] documented as of this encounter Visit Diagnoses Not on filedocumented in this encounter Additional Health Concerns Assessment Noted Time PHQ-9 Depression Total Score: 3 03/30/20 9:25 AM EDT documented as of this encounter Care Teams Regional Education Coordinator Relationship Specialty Start Date End Date Beronica Victor NP [address] [facility] [address] [place] [address] PCP - General Family Medicine 07/25/24 documented as of this encounter
--- OUTSIDE RECORDS SUMMARY | 2025-06-23 09:11 | XMS_ITS | Clinical Summary ---
Author Organization [facility] Address [address] [place] [address] Care Team Providers Care Stone Repairer Name Role Phone Unknown Primary Care Provider [phone] Allergies No known active allergies Medications FLUoxetine [...] Name Priority Date/Time Associated Diagnosis Comments THINPREP PAP(GETTER FILLER) HPV SCR RFX HPV 16,18/45 Routine 09/19/2024 10:28 AM EDT from Last 3 Months or Most Recently Relevant to Health Maintenance Results * ThinPrep Pap(Supplier Relationship Director) HPV Scr Rfx HPV 16,18/45 (09/19/2024 10:28 AM EDT) Clinical Information [employer] Comment:SURGICAL ANA MARIA/POS HP V LMP: [employer] Comment:2014 Previous PAP: [employer] Comment:05-29-15 NEG Previous Biopsy Ques [employer] Comment:NONE Source: [employer] Comment:Vagina Statement of Adequacy: [employer] Comment:SATISFACTORY FOR REBECCA LUATION Interpretation/Res ult: [employer] Comment: Cytology Results: Negative for intraepithelial lesion or malignancy. Comment: [employer] Comment: This Pap test has been evaluated with computer assisted technology. Wire Fence Builder: [employer] Comment: MPG, CT(ASCP) CT screening location: [place] [address] Review Wire Fence Builder: [employer] Comment: GSG, CT(ASCP) CT screening location: [place] [address] Comment [employer] Comment: EXPLANATORY NOTE: The Pap is a [...] Hpv Mrna [id number] Not Detected Not Detected [employer] Comment: Methodology: Branch Associate Teller-Mediated Amplification This assay detects E6/E7 viral messenger RNA (mRNA) from 14 high-risk HPV types (16,18,31,33,35,39,45,51,52,56,58,59,66,68). Cervical sources are required for HPV testing. If a vaginal source from a patient who has had a total hysterectomy with removal of cervix was submitted, please contact the testing laboratory for alternative testing options. For additional information, please refer to http://education.Isentio/faq/QGB989l6 (This link if provided for information/ educational purposes only.) 09/19/2024 10:2 8 AM EDT 09/20/2024 6:03 AM EDT [facility] - 09/21/2024 3:42 PM EDT Ordered by External Provider. [id number], SHANI EPPS, External Provider LAB AMB PATH/CYTO ORDERABLE S Final Result [employer] [address] [place] [phone] from Last 3 Months or Most Recently Relevant to Health Maintenance Insurance [facility] Care Teams Stone Repairer Relationship Specialty Start Date End Date Unknown Unknow Provider Address PCP - General 06/03/22
--- OUTSIDE RECORDS SUMMARY | 2025-06-23 09:11 | XMS_ITS | Clinical Summary ---
Author Organization [facility] Prior to 12/03/[address] [place] [address] Care Team Providers Care Offset Plate Maker Name Role Phone Weare-Mari Victor MD Primary Care Provider Allergies No [...] or Tdap) 07/29/2021 07/29/2011, 09/13/2010 COVID-19 Vaccine (2 6 season) 2025 10/11/2020 Influenza Vaccine (#1) 2025 8, 03/20/2015 Pneumococcal Vaccine Aged Out No long er eligible based on patient's age to complete this topic RSV Ped < 20 months Aged Out No longe r eligible based on patient's age to complete this topic Care Teams Offset Plate Maker Relationship Specialty Start Date End Date Weare-Mari Victor MD PCP - General Internal Medicine 03/21/20
== END 2025-06-23 09:08 | disposition home or self-care (01) ==
PROVIDERS: PCP Pediatrics; Visit Provider Registered Nurse
DX: G43.109 Migraine with aura, not intractable, without status migrainosus (principal); G43.009 Migraine without aura, not intractable, without status migrainosus; D35.2 Benign neoplasm of pituitary gland
CPT/HCPCS: 99214